=== PATIENT | male | born 1985 | race African-American/Black ===

== ENCOUNTER 2018-11-13 00:14 | Emergency (ER) | payer SELFPAY ==
[2018-11-13] MEDS ORDERED: Cyclobenzaprine 10 MG TAB ONE (00:38)
[2018-11-13 01:00] LABS: Hemoglobin 14.3 g/dL (14.0-18.0); Mean Corpuscular HGB CONC 33.8 g/dL (32.0-36.0); Mean Corpuscular Volume 85.7 fL (78.0-98.0); Mean Platelet Volume 7.9 fL (7.4-10.4); Platelet Count 218 thou/uL (130-400); RBC Distribution Width 12.1 % (11.5-14.5); Red Blood Cell (RBC) Count 4.93 mill/uL (4.70-6.10)
[2018-11-13 01:15] LABS: Lymphocytes 62 % (21-51); MDiff Complete? YES; Monocytes 5 % (0-10); Neutrophil 33 % (42-75); Platelet Morphology Comment Appears Adequate
[2018-11-13 01:25] LABS: ALT (SGPT) 25 U/L (8-55); AST (SGOT) 28 U/L (5-34); Albumin 4.4 g/dL (3.5-5.0); Alkaline Phosphatase 85 U/L (40-150); Anion Gap 13 mmol/L (10-20); BUN (Urea Nitrogen) 18 mg/dL (8.9-20.6); Bilirubin, Total 0.9 mg/dL (0.2-1.2); Calc. Creatinine Clearance 0 mL/min (70-130); Calcium 9.5 mg/dL (7.8-10.44); Carbon Dioxide 23 mmol/L (22-29); Chloride 107 mmol/L (98-107); Estimated GFR-MDRD 78; Globulin 2.8 g/dL (2.4-3.5); Glucose 123 mg/dL (70-105); Potassium 3.4 mmol/L (3.5-5.1); Protein, Total 7.2 g/dL (6.0-8.3); Sodium 140 mmol/L (136-145)
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
--- NOTE | 2018-11-13 08:01 | RAD ---
XR Shoulder Lt 3 View STANDARD History: Fall. Injury. Comparison: None. Findings: No acute fracture or malalignment. Visualized ribs are unremarkable. Soft tissues are unrem arkable. Impression: No acute fracture or malalignment.
== END 2018-11-13 03:15 | disposition home or self-care (01) ==
LOC: ERS 00:14
DX: S43.002A Unspecified subluxation of left shoulder joint, initial encounter (principal); F17.210 Nicotine dependence, cigarettes, uncomplicated; I10 Essential (primary) hypertension; V03.99XA Pedestrian with other conveyance injured in collision with car, pick-up truck or van, unspecified whether traffic or nontraffic accident, initial encounter
CPT/HCPCS: 70450; 72125; 80053; 85025